=== PATIENT | female | born 1965 | race American Indian/Alaskan Native ===

== ENCOUNTER 2018-11-05 13:08 | Emergency (ER) | payer OTHER ==
--- NOTE | 2018-11-05 13:33 | Emergency Department Report ---
Blank Doc - Documentation Documentation: This is a 53-female that presents bilateral wrist pain. Denies any injuries. This initial assessment/diagnostic orders/clinical plan/treatment(s) is/are subject to change based on patient's health status, clinical progression and re- assessment by fellow clinical providers in the ED. Further treatment and workup at subsequent clinical providers discretion. Patient/guardians urged not to elope from the ED as their condition may be serious if not clinically assessed and managed. Initial orders include: 1- Patient sent to [facility] for further evaluation and treatment
[2018-11-05 13:35] VITALS: BP 143/77
--- NOTE | 2018-11-05 15:59 | Emergency Department Report ---
Upper Extremity - HPI Chief Complaint: Extremity Injury, Upper Stated Complaint: ARMS/HANDS PAIN Time Seen by Provider: 11/05/18 13:32 Other History: Patient is a 53-year-old female who presents the emergency room with complaints of right hand and wrist pain that began a month ago. she states she is now suffering this feels some discomfort in her left hand. She has not seen anyone for this. She denies any numbness. she does not report any fall or injury. 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 she denies any past medical history, allergies medications or daily medications. she states she has been taking ibuprofen without much relief. ED Review of Systems ROS: Stated complaint: ARMS/HANDS PAIN Other details as noted in HPI Comment: All other systems reviewed and negative ED Past Medical Hx - Past Medical History Previous Medical History?: No Hx Renal Disease: No - Surgical History Past Surgical History?: No - Social History Smoking Status: Never Smoker Substance Use Type: Alcohol - Medications Home Medications: Home Medications Medication Instructions Recorded Confirmed Last Taken Type Diclofenac EC [Voltaren] 25 mg PO Q8HR PRN #20 tablet 11/05/18 Unknown Rx Upper Extremity Exam - Exam General: Vital signs noted. No distress. Alert and acting appropriately. Elbow: Yes Normal Range of Motion in Elbow, No Elbow Tenderness, No Elbow Deformity Forearm: No Forearm Tenderness, No Forearm Deformity, No Pain with Pronation, No Pain with Supination Wrist: Yes Normal ROM in Wrist, Yes Pain with Axial Thumb Compression (mild ), No Wrist Tenderness, No Wrist Deformity, No Snuffbox Tenderness Hand: Yes Hand Tenderness (TTP over the right thenar immenince), Yes Normal ROM in Digit(s), No Hand Deformity, No Digit Tenderness, No Digit(s) Deformity, No Tendon Dysfunction CMS Exam: Yes Normal Distal Pulses, Yes Normal Capillary Refill, Yes Normal Distal Sensation, No Broken Skin ED Course Vital Signs 11/05/18 13:33 Temperature 98.3 F Pulse Rate 60 Respiratory 16 Rate Blood Pressure 143/77 O2 Sat by Pulse 99 Oximetry ED Medical Decision Making - Medical Decision Making Patient is a 53-year-old female who presents the emergency room with complaints of right hand and wrist pain that began a month ago. she states she is now suffering this feels some discomfort in her left hand. She has not seen anyone for this. She denies any numbness. she does not report any fall or injury. 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 she denies any past medical history, allergies medications or daily medications. she states she has been taking ibuprofen without much relief. on exam: TTP over the right thenar immenince, neurovascularly intact, discomfort with axial thumb compression, no snuffbox tenderness, no wrist tenderness, no TTP of the left hand. examination consistent with arthritis vs. carpal tunnel. pt given prescription for diclofenac. advised to please take medication as prescribed as needed. May use rest and ice for 15 minutes at a time. Follow up with Dr. Hawkins, orthopedic in the next 2-3 days. Return to the emergency room for any new or worsening symptoms. - Differential Diagnosis arthritis, carpal tunnel, sprain, tenosynovitits Critical care attestation.: If time is entered above; I have spent that time in minutes in the direct care of this critically ill patient, excluding procedure time. ED Disposition Clinical Impression: Right hand pain, Right wrist pain, Left hand pain Disposition: TO HOME OR SELFCARE Is pt being admited?: No Does the pt Need Aspirin: No Condition: Stable Instructions: Arthralgia (ED) Additional Instructions: Please take medication as prescribed as needed. May use rest and ice for 15 minutes at a time. Follow up with Dr. Hawkins, orthopedic in the next 2-3 days. Return to the emergency room for any new or worsening symptoms. Prescriptions: Diclofenac EC [Voltaren] 25 mg PO Q8HR PRN #20 tablet PRN Reason: Pain, Moderate (4-6) Referrals: JANETH CYR MD [Primary Care Provider] - 2-3 Days PUJA HAWKINS MD [Staff Physician] - 2-3 Days Time of Disposition: 15:59 Print Language: ICELANDIC
== END 2018-11-05 16:08 | disposition home or self-care (01) ==
LOC: ED 13:08
DX: M79.641 Pain in right hand (principal); M25.531 Pain in right wrist; M79.642 Pain in left hand; Z79.1 Long term (current) use of non-steroidal anti-inflammatories (NSAID)
CPT/HCPCS: 99282